=== PATIENT | female | born 1990 | race Hispanic/Latino ===

== ENCOUNTER 2017-12-24 23:54 | Emergency (ER) | payer OTHER ==
[2017-12-25] MEDS ORDERED: LIDOCAINE HCL MPF 1% 5ML VIAL ONE (00:12)
[2017-12-25] MEDS ORDERED: TETANUS/DIPHTHERIA TOXOID [ADULT] 0.5 ML VIAL IM ONE (00:13)
== END 2017-12-25 01:07 | disposition home or self-care (01) ==
LOC: EDH 23:54
DX: S01.111A Laceration without foreign body of right eyelid and periocular area, initial encounter (principal); F31.9 Bipolar disorder, unspecified; Z72.0 Tobacco use; Y04.0XXA Assault by unarmed brawl or fight, initial encounter; Y93.89 Activity, other specified; Y92.89 Other specified places as the place of occurrence of the external cause; Y99.8 Other external cause status
CPT/HCPCS: 12052; 90471; 90714; 99285; J3490

== ENCOUNTER 2018-01-04 17:49 | Emergency (ER) | payer OTHER | END 2018-01-04 19:59 | disposition home or self-care (01) | LOC: EDH 17:49 | DX: S01.111D Laceration without foreign body of right eyelid and periocular area, subsequent encounter (principal); F31.9 Bipolar disorder, unspecified; F41.9 Anxiety disorder, unspecified; Z72.0 Tobacco use; X58.XXXD Exposure to other specified factors, subsequent encounter ==

== ENCOUNTER 2018-01-05 09:39 | Emergency (ER) | payer OTHER | END 2018-01-05 10:25 | disposition home or self-care (01) | LOC: EDH 09:39 | DX: F31.9 Bipolar disorder, unspecified (principal); F41.9 Anxiety disorder, unspecified; F14.10 Cocaine abuse, uncomplicated ==

== ENCOUNTER 2018-01-05 13:15 | Emergency (ER) | payer OTHER ==
[2018-01-05] MEDS ORDERED: ZIPRASIDONE HCL 20 MG CAPSULE PO SCH (14:00)
== END 2018-01-05 14:04 | disposition home or self-care (01) ==
LOC: EDH 13:15
DX: F31.2 Bipolar disorder, current episode manic severe with psychotic features (principal); F41.9 Anxiety disorder, unspecified; F14.10 Cocaine abuse, uncomplicated

== ENCOUNTER 2019-08-09 00:10 | Emergency (ER) | payer SELFPAY | END 2019-08-09 01:15 | disposition home or self-care (01) | LOC: EDH 00:10 | DX: R00.2 Palpitations (principal); F41.9 Anxiety disorder, unspecified; F32.9 Major depressive disorder, single episode, unspecified; F14.10 Cocaine abuse, uncomplicated; F12.10 Cannabis abuse, uncomplicated; Z98.890 Other specified postprocedural states | CPT/HCPCS: 93005 ==

== ENCOUNTER 2019-11-29 15:29 | Emergency (ER) | payer OTHER | END 2019-11-29 15:56 | disposition left against medical advice (07) | LOC: EDH 15:29 | DX: Z02.89 Encounter for other administrative examinations (principal); F41.9 Anxiety disorder, unspecified; F31.9 Bipolar disorder, unspecified; F14.10 Cocaine abuse, uncomplicated; Z72.0 Tobacco use; Z53.29 Procedure and treatment not carried out because of patient's decision for other reasons ==

== ENCOUNTER 2019-12-16 02:44 | Emergency (ER) | payer SELFPAY ==
[2019-12-16 03:16] LABS: BASOPHILS % (AUTO) 0.9 % (0.0-5.0); EOSINOPHILS % (AUTO) 0.7 % (0.0-8.0); LYMPHOCYTES % (AUTO) 29.8 % (21.0-51.0); MEAN CORPUSCULAR HEMOGLOBIN 30.9 pg (27.0-33.0); MEAN CORPUSCULAR HGB CONC 32.7 g/dL (32.0-36.0); MEAN CORPUSCULAR VOLUME 94.6 fL (79-99); MONOCYTES % (AUTO) 9.8 % (3.0-13.0); NEUTROPHILS % (AUTO) 58.7 % (40.0-77.0); PLATELET COUNT (AUTO) 357 K/uL (130-400); RED BLOOD CELL COUNT(AUTO) 3.91 MIL/uL (4.00-5.50); RED CELL DISTRIBUTION WIDTH 13.4 % (11.0-15.5); WHITE BLOOD COUNT (AUTO) 6.7 K/uL (4.8-10.8)
[2019-12-16 03:19] LABS: HCG,QUAL RESULT NEGATIVE (NEGATIVE)
[2019-12-16 03:20] LABS: APPEARANCE,URINE Clear (CLEAR); BILIRUBIN,URINE Negative (NEGATIVE); COLOR,URINE Yellow (YELLOW); GLUCOSE, URINE (UA) Negative (NEGATIVE); KETONES,URINE Negative (NEGATIVE); LEUKOCYTE ESTERASE ,URINE Negative (NEGATIVE); NITRATE,URINE Negative (NEGATIVE); OCCULT BLOOD,URINE Negative (NEGATIVE); PROTEIN,URINE Negative (NEGATIVE); UROBILINOGEN,URINE 0.2 mg/dL (0.2-1.0)
[2019-12-16 03:20] LABS: CARBON DIOXIDE 25 mmol/L (21-32); CHLORIDE 101 mmol/L (101-111); CREATININE 0.8 mg/dL (0.5-1.5); GLOMERULAR FILTR. RATE CALC 89 mL/min (>60); GLUCOSE,RANDOM 80 mg/dL (70-105); POTASSIUM 3.7 mmol/L (3.5-5.1); SODIUM SERUM 132 mmol/L (136-145); UREA NITROGEN, BLOOD 10 mg/dL (7-18)
[2019-12-16 03:25] LABS: ACETAMINOPHEN 4 mcg/mL (10-30); ALANINE AMINOTRANSFERASE 194 U/L (12-78); ALBUMIN 3.8 g/dL (3.5-5.0); ALCOHOL, BLOOD < 3 mg/dL (0-10); ASPARTATE AMINOTRANSFERASE 125 U/L (10-37); BILIRUBIN,TOTAL 0.2 mg/dL (0.2-1.0); SALICYLATE < 2.8 mg/dL (2.8-20.0); TOTAL PROTEIN, SERUM 7.2 g/dL (6.0-8.3)
[2019-12-16 03:31] LABS: AMPHET/METH SCREEN,URINE NEGATIVE (NEGATIVE); BARBITURATE SCREEN, URINE NEGATIVE (NEGATIVE); BENZODIAZEPINES SCREEN,URINE POSITIVE (NEGATIVE); CANNABINOID SCREEN,URINE NEGATIVE (NEGATIVE); COCAINE SCREEN,URINE NEGATIVE (NEGATIVE); OPIATE SCREEN,URINE NEGATIVE (NEGATIVE); PHENCYCLIDINE SCREEN,URINE NEGATIVE (NEGATIVE)
== END 2019-12-16 05:04 | disposition home or self-care (01) ==
LOC: EDH 02:44
DX: F31.9 Bipolar disorder, unspecified (principal); F20.9 Schizophrenia, unspecified; F41.9 Anxiety disorder, unspecified; F14.10 Cocaine abuse, uncomplicated
CPT/HCPCS: 36415; 80053; 80305; 81003; 81025; 85025; 93005; 99284; G0481

== ENCOUNTER 2019-12-16 09:46 | Emergency (ER) | payer SELFPAY | END 2019-12-16 12:02 | disposition home or self-care (01) | LOC: EDH 09:46 | DX: R51.9 Headache, unspecified (principal); F20.9 Schizophrenia, unspecified; F31.9 Bipolar disorder, unspecified; F41.9 Anxiety disorder, unspecified; F14.10 Cocaine abuse, uncomplicated; Z71.51 Drug abuse counseling and surveillance of drug abuser; Z72.0 Tobacco use; Z98.890 Other specified postprocedural states | CPT/HCPCS: 70450 ==